=== PATIENT | male | born 1975 | race Caucasian/White ===

== ENCOUNTER 2024-07-23 20:55 | Emergency (ER) | payer BC ==
[2024-07-23 22:43] LABS: #Monocytes 0.97 10x3/uL (0.0-1.1); #Neutrophils 8.32 10x3/uL (1.5-8.4); %Basophils 0.8 % (0.0-2.0); %Eosinophils 1.6 % (0.0-6.0); %Lymphocytes 21.8 % (18.0-47.0); %Monocytes 7.9 % (0.0-10.0); %Neutrophils 67.5 % (40.0-75.0); Hemoglobin 17.6 g/dL (13.5-17.5); Mean Corpuscular HGB CONC 32.6 g/dL (32.0-36.0); Mean Corpuscular Hemoglobin 27.7 pg (27.0-33.0); Mean Corpuscular Volume 84.9 fL (81.2-95.1); Mean Platelet Volume 8.2 fL (7.4-10.4); Platelet Count 283 10x3/uL (150-450); RBC Distribution Width 14.7 % (11.5-14.5); Red Blood Cell (RBC) Count 6.36 10x6/uL (4.32-5.72); White Blood Cell (WBC) Count 12.33 10x3/uL (3.5-10.5)
[2024-07-23 23:12] LABS: ALT (SGPT) 58 U/L (Less than 45); AST (SGOT) 54 U/L (11-34); Albumin 4.7 g/dL (3.1-4.5); Alkaline Phosphatase 76 U/L (40-110); Anion Gap 17 mmol/L (10-20); BUN (Urea Nitrogen) 24 mg/dL (8.9-20.6); Bilirubin, Total 1.2 mg/dL (0.3-1.2); Calc. Creatinine Clearance 0 mL/min (70-130); Calcium 9.8 mg/dL (7.8-10.44); Carbon Dioxide 22 mmol/L (22-29); Chloride 105 mmol/L (98-107); Estimated GFR 73; Globulin 2.8 g/dL (2.4-3.5); Glucose 83 mg/dL (70-105); Potassium 4.7 mmol/L (3.5-5.1); Protein, Total 7.5 g/dL (6.0-8.3); Sodium 139 mmol/L (136-145)
[2024-07-23 23:13] LABS: Troponin I Less than 0.010 ng/mL (< 0.028)
== END 2024-07-23 23:45 | disposition home or self-care (01) ==
LOC: CSHERS 20:55
DX: I10 Essential (primary) hypertension (principal); I48.91 Unspecified atrial fibrillation; E03.9 Hypothyroidism, unspecified; Z79.899 Other long term (current) drug therapy
CPT/HCPCS: 80053; 84484; 85025; 93005; 99283